=== PATIENT | female | born 1965 | race Caucasian/White ===

== ENCOUNTER 2021-11-10 12:51 | Emergency (ER) | payer MEDICAID ==
[~2021-11-10] VITALS: Ht 157.5 cm; Wt 65.8 kg
[2021-11-10] MEDS ORDERED: KETOROLAC TROMETHAMINE 60 MG/2 ML VIAL IM ONE (13:00)
--- NOTE | 2021-11-10 13:05 | NUR ---
Patient to ER bed 07 to gown for evaluation. Side rails up.
[2021-11-10 13:07] VITALS: BP_SYST 125
--- NOTE | 2021-11-10 13:09 | NUR ---
TECHNICAL MARKETING CONSULTANT AT BEDSIDE.
--- NOTE | 2021-11-10 13:10 | NUR ---
Pt coming from home ambulaotry with steady gait. A&Ox4. Pt c/o having right upper abdominal pain that radiates to her right mid back 11/21 that started on Monday. pt states she went to urgent care on monday and was prescribed ibuprofen but pt sttaes pain is not relieved. Skin intact. VSS. No n/v. No chest pain and no sob. Allergic to Penicillin. No known medical conditions. Bed in lowest position.
--- NOTE | 2021-11-10 13:12 | NUR ---
Patient transported to radiology via AMBULATORY WITH STEADY GAIT, accompanied by COAT OPERATOR INSULATOR.
--- NOTE | 2021-11-10 13:23 | NUR ---
Returned from radiology, back to [facility].
[2021-11-10 13:33] LABS: BILIRUBIN,URINE NEGATIVE (NEGATIVE); BLOOD, URINE NEGATIVE (NEGATIVE); CLARITY/URINE CLEAR (CLEAR); COLOR,URINE YELLOW (YELLOW); GLUCOSE,URINE NEGATIVE (NEGATIVE); KETONES,URINE NEGATIVE (NEGATIVE); LEUKOCYTE ESTERASE ,URINE NEGATIVE (NEGATIVE); NITRITE, URINE NEGATIVE (NEGATIVE); PH,URINE 5.5 (5.0-8.0); PROTEIN URINE NEGATIVE (NEGATIVE); UROBILINOGEN,URINE 0.2 (0.2-1.0)
[2021-11-10 13:34] LABS: ANION GAP 7 (5-15); BASOPHILS # (AUTO) 0.1 K/uL (0.0-0.2); BASOPHILS % (AUTO) 0.9 % (0.0-2.0); CALCIUM 9.3 mg/dL (8.4-11.0); CHLORIDE 109 mmol/L (98-107); CREATININE 1.09 mg/dL (0.55-1.30); EOSINOPHILS # (AUTO) 0.3 K/uL (0.0-0.4); EOSINOPHILS % (AUTO) 3.2 % (0.0-4.0); GLUCOSE 101 mg/dL (70-99); HEMOGLOBIN 13.1 g/dL (12.0-16.0); LYMPHOCYTES % (AUTO) 38.6 % (20.5-51.5); MEAN CORPUSCULAR HEMOGLOBIN 30 pg (27-31); MEAN CORPUSCULAR HGB CONC 34 % (32-36); MEAN CORPUSCULAR VOLUME 88 fL (79.0-98.0); MONOCYTES # (AUTO) 0.6 K/uL (0.0-1.0); MONOCYTES % (AUTO) 7.7 % (1.7-9.3); NEUTROPHILS # (AUTO) 3.9 K/uL (1.8-7.7); NEUTROPHILS % (AUTO) 49.6 % (40.0-70.0); PLATELET COUNT (AUTO) 361 K/uL (130-430); POTASSIUM 4.2 mmol/L (3.5-5.1); RED BLOOD CELL COUNT(AUTO) 4.34 MIL/uL (4.2-6.2); RED CELL DISTRIBUTION WIDTH 13.2 % (9.0-15.0); SODIUM SERUM 144 mmol/L (136-145); UREA NITROGEN, BLOOD 12 mg/dL (8-21); WHITE BLOOD COUNT (AUTO) 7.9 K/uL (4.8-10.8)
[2021-11-10 13:36] LABS: GFR AFRICAN AMERICAN 67 mL/min (>90)
[2021-11-10 13:48] LABS: ALANINE AMINOTRANSFERASE 20 U/L (12-78); ALBUMIN 3.9 g/dL (3.4-4.8); AMYLASE 69 U/L (0-100); ASPARTATE AMINOTRANSFERASE 22 U/L (10-37); LIPASE 196 U/L (73-393); TOTAL BILIRUBIN 0.4 mg/dL (0.0-1.0)
[2021-11-10 13:50] LABS: C-REACTIVE PROTEIN QUANT < 0.2 mg/dL (0-0.5)
[2021-11-10] MEDS ORDERED: ACYC-133 PO (15:11)
[2021-11-10] MEDS ORDERED: HYDR-3917 PO (15:11)
--- NOTE | 2021-11-10 15:31 | NUR ---
Patient given written and verbal discharge instructions and verbalizes understanding. ER MD discussed with patient the results and treatment provided. Patient in stable condition Rx of given. Opportunity for questions provided and answered. Medication side effect fact sheet provided.
--- NOTE | 2021-11-10 15:31 | NUR ---
A/OX4 VSS VERBALIZED UNDERSTANDING OF DC INSTRUCTIONS, ALL QUESTIONS ANSWERED, AMBULATED WIOTH STEADY GAIT.
== END 2021-11-10 15:31 | disposition home or self-care (01) ==
LOC: SED 12:51
DX: B02.9 Zoster without complications (principal); R10.11 Right upper quadrant pain; Z88.0 Allergy status to penicillin; Z79.899 Other long term (current) drug therapy
CPT/HCPCS: 36415; 74176; 76376; 76705; 80053; 81003; 81025; 82150; 83605; 83690; 84484; 84703; 85025; 86140; 96372; 99284; J1885